=== PATIENT | male | born 1940 | race Caucasian/White ===

== ENCOUNTER 2018-08-24 09:24 | Emergency (ER) | payer MEDICARE ==
[~2018-08-24] VITALS: Ht 170.2 cm; Wt 79.5 kg
[~2018-08-24 09:24] MED LIST: ADVAIR DISK1 INH; CHERATUSSIN PO; CIPROFLOXACN500 MG PO; COMBIVENT IN; COMBIVENT RESPIMAT IN; DOXAZOSIN8 MG PO; FLUCONAZOLE100 MG PO; KEFLEX500 MG PO; KENALOG-4040 MG/ML IA; PERCOCET 5/325M1 TAB PO; QUAR IN; QVAR80 MCG IN; RAPAFLO4 MG PO; RAPAFLO8 MG PO; ZOCOR20 MG PO
[2018-08-24] MEDS ORDERED: TORADOL PO (11:35)
[2018-08-24] MEDS ORDERED: PERCOCET1 TA2 PO (11:35)
[2018-08-24 11:45] VITALS: BP 137/78
== END 2018-08-24 12:13 | disposition home or self-care (01) ==
LOC: ED 09:24
DX: S22.41XA Multiple fractures of ribs, right side, initial encounter for closed fracture (principal); S50.01XA Contusion of right elbow, initial encounter; J43.9 Emphysema, unspecified; F17.210 Nicotine dependence, cigarettes, uncomplicated; W19.XXXA Unspecified fall, initial encounter; Y93.89 Activity, other specified; Y92.89 Other specified places as the place of occurrence of the external cause; Y99.0 Civilian activity done for income or pay

== ENCOUNTER 2020-12-04 08:32 | Emergency (ER) | payer MEDICARE ==
[~2020-12-04] VITALS: Ht 170.2 cm; Wt 81.0 kg
[~2020-12-04 08:32] MED LIST changes: +PERCOCET1 TA2 PO; +TORADOL PO
[2020-12-04 09:38] LABS: HEMOGLOBIN 15.1 g/dl (14.0-18.0); IMMATURE GRANULOCYTES 0.3 % (0.0-5.0); MEAN CORPUSCULAR HGB 32.1 pG CALC (26.0-32.0); MEAN CORPUSCULAR HGB CONC 32.1 g/dL CAL (32.0-36.0); NEUT# 5.36 thou/uL (1.82-7.42); RED BLOOD COUNT 4.71 mill/uL (4.70-6.10); RED CELL DISTRI WIDTH 14.3 % (11.5-15.5)
[2020-12-04 09:49] LABS: URINE BILIRUBIN - DIPSTICK NEGATIVE (NEGATIVE); URINE BLOOD DIPSTICK MODERATE (NEGATIVE); URINE COLOR YELLOW; URINE GLUCOSE - DIPSTICK NEGATIVE (NEGATIVE); URINE KETONE NEGATIVE (NEGATIVE); URINE LEUK ESTERASE NEGATIVE (NEGATIVE); URINE NITRITE - DIPSTICK NEGATIVE (Negative); URINE PROTEIN - DIPSTICK NEGATIVE (NEG-TRACE); URINE SPECIFIC GRAVITY >=1.030; URINE UROBILINOGEN - DIPSTICK 0.2 E.U./dL (0.2)
[2020-12-04 09:54] LABS: LIPASE 94 u/l (23-300)
[2020-12-04 09:55] LABS: ALBUMIN 4.1 g/dL (3.2-5.0); ALKALINE PHOSPHATASE 92 u/l (38-126); ANION GAP 11 (6-22 (CALC)); BUN 14 mg/dL (8-23); BUN/CREATININE RATIO 17 (12-20 (CALC)); CARBON DIOXIDE 30 mmol/l (22-30); CHLORIDE 102 mmol/l (95-108); CREATININE 0.8 mg/dL (0.7-1.3); GFR > 60 ML/MIN (>=60 (CALC)); GFR FOR AFR.AMER. > 60 ML/MIN (>=60 (CALC)); POTASSIUM 4.5 mmol/l (3.5-5.1); SGOT/AST 23 u/l (19-48); SODIUM 138 mmol/l (137-146); TOTAL PROTEIN 6.9 g/dL (6.3-8.2)
[2020-12-04 09:56] LABS: MEAN CELL VOLUME 99.8 fL CALC (80.0-100.0)
[2020-12-04 09:58] LABS: BILIRUBIN, TOTAL 0.6 mg/dL (0.0-1.4)
[2020-12-04] MEDS ORDERED: FLEXERIL5 MG PO (12:12)
[2020-12-04] MEDS ORDERED: PREDNISONE20 MG PO (12:12)
[2020-12-04] MEDS ORDERED: IBUPROFEN600 MG PO (12:12)
[2020-12-04 13:01] VITALS: BP 114/78
== END 2020-12-04 13:02 | disposition home or self-care (01) ==
LOC: ED 08:32
PROVIDERS: Student in an Organized Health Care Education/Training Program
DX: S39.012A Strain of muscle, fascia and tendon of lower back, initial encounter (principal); M47.816 Spondylosis without myelopathy or radiculopathy, lumbar region; J43.9 Emphysema, unspecified; F17.200 Nicotine dependence, unspecified, uncomplicated; X58.XXXA Exposure to other specified factors, initial encounter; Z86.12 Personal history of poliomyelitis